=== PATIENT | male | born 1975 | race Caucasian/White ===

== ENCOUNTER → 2019-06-04 09:24 | Outpatient (BNVA) | payer MEDICAID, SELFPAY | PROVIDERS: Family Provider Family Medicine; PCP Family Medicine; Visit Provider Anesthesiology | DX: M54.2 Cervicalgia (principal); M54.5 Low back pain; F17.210 Nicotine dependence, cigarettes, uncomplicated; Z79.891 Long term (current) use of opiate analgesic | CPT/HCPCS: 99214 ==

== ENCOUNTER → 2019-06-11 12:01 | Outpatient (BNVA) | payer MEDICAID, SELFPAY | PROVIDERS: Family Provider Family Medicine; PCP Family Medicine; Visit Provider Family Medicine | DX: M50.00 Cervical disc disorder with myelopathy, unspecified cervical region (principal) | CPT/HCPCS: 36415; 80053 ==

== ENCOUNTER → 2020-12-14 15:40 | Outpatient (BNVA) | payer MEDICAID, SELFPAY | PROVIDERS: Family Provider Family Medicine; PCP Family Medicine; Referring Provider Family Medicine; Visit Provider Orthopaedic Surgery | DX: M43.12 Spondylolisthesis, cervical region (principal); M50.00 Cervical disc disorder with myelopathy, unspecified cervical region | CPT/HCPCS: 72050 ==

== ENCOUNTER → 2020-12-24 09:08 | Outpatient (BNVA) | payer MEDICAID, SELFPAY | PROVIDERS: Family Provider Family Medicine; PCP Family Medicine; Visit Provider Nurse Practitioner Family | DX: R19.7 Diarrhea, unspecified (principal); R50.9 Fever, unspecified; Z20.822 Contact with and (suspected) exposure to COVID-19 | CPT/HCPCS: 87635 ==

== ENCOUNTER 2020-12-31 13:25 | Outpatient (CLI) | payer MEDICAID, SELFPAY ==
--- NOTE | 2020-12-31 13:38 | MR_ITS ---
WS: [id number] MRI CERVICAL SPINE NONCONTRAST TECHNIQUE: Sagittal T1, T2 and STIR imaging. Axial T2, gradient, and fiesta imaging. CLINICAL INFORMATION: M43.12 - Spondylolisthesis, cervical region COMPARISON: MRI FINDINGS: Straightening of the normal cervical lordosis. Mild cervical curve. No high-grade cervical canal sten osis. Cord signal is normal. Disc bulging worse at C3-C4 C4-C5 C5-C6 and C6-C7. Normal prevertebral s oft tissues. C2-C3: Normal. C3-C4: Mild disc osteophyte complex with endplate ridging. Mild central canal stenosis. Moderate left greater than right bony foraminal narrowing. Mild facet arthropathy. C4-C5: Mild disc bulging and osteophytic ridging. Bilobed central shallow protrusion. Moderate to sev ere left and moderate right bony foraminal narrowing. Mild facet arthropathy. Mild central canal sten osis. C5-C6: Right pericentral shallow disc osteophyte protrusion. Slight indentation on cervical cord with mild central canal stenosis. Severe left and moderate right bony foraminal narrowing. Mild facet art hropathy. C6-C7: Right pericentral disc osteophyte protrusion with slight contact of the cervical cord. Mild/mo derate central canal stenosis. Severe left bony foraminal narrowing. Moderate right bony foraminal na rrowing. C7-T1: Mild disc bulge with endplate ridging. Moderate left and mild right bony foraminal narrowing. Mild central canal stenosis Visualized brain stem structures: Normal. Prevertebral soft tissues: Normal. MR/MR cervical spin wo con* [id number] IMPRESSION: Overall no significant interval changes since 2019. 1. Straightening of the normal cervical lordosis. No high-grade central canal narrowing. 2. Mild central canal stenosis C3-C4, C4-C5, C5-C6, and mild to moderate at C6 -C7. 3. Multilevel moderate to severe bony foraminal narrowing worse at left C3-4, left C4-C5, left C5-C6, and left C6-C7
== END 2020-12-31 13:26 | disposition home or self-care (01) ==
PROVIDERS: PCP Family Medicine; Visit Provider Orthopaedic Surgery
DX: M43.12 Spondylolisthesis, cervical region (principal); M48.02 Spinal stenosis, cervical region
CPT/HCPCS: 72141

== ENCOUNTER → 2021-02-03 10:19 | Outpatient (BNVA) | payer MEDICAID, SELFPAY | PROVIDERS: PCP Family Medicine; Referring Provider Orthopaedic Surgery; Visit Provider Anesthesiology Pain Medicine | DX: M50.00 Cervical disc disorder with myelopathy, unspecified cervical region (principal); M54.12 Radiculopathy, cervical region; M47.812 Spondylosis without myelopathy or radiculopathy, cervical region | CPT/HCPCS: 99205 ==

== ENCOUNTER → 2021-02-16 12:43 | Outpatient (BNVA) | payer MEDICAID, SELFPAY | PROVIDERS: PCP Family Medicine; Visit Provider Anesthesiology Pain Medicine | DX: G89.29 Other chronic pain (principal); M54.12 Radiculopathy, cervical region | CPT/HCPCS: 62321; J1100 ==

== ENCOUNTER → 2021-03-14 14:40 | Outpatient (BNVA) | payer MEDICAID, SELFPAY | PROVIDERS: PCP Family Medicine; Visit Provider Anesthesiology Pain Medicine | DX: M54.12 Radiculopathy, cervical region (principal); M54.16 Radiculopathy, lumbar region; F17.210 Nicotine dependence, cigarettes, uncomplicated | CPT/HCPCS: 62321; J1100 ==

== ENCOUNTER → 2021-03-28 10:28 | Outpatient (BNVA) | payer MEDICAID, SELFPAY | PROVIDERS: PCP Family Medicine; Visit Provider Anesthesiology Pain Medicine | DX: G89.29 Other chronic pain (principal); M50.00 Cervical disc disorder with myelopathy, unspecified cervical region; M47.812 Spondylosis without myelopathy or radiculopathy, cervical region; M51.16 Intervertebral disc disorders with radiculopathy, lumbar region; M79.602 Pain in left arm; F17.200 Nicotine dependence, unspecified, uncomplicated | CPT/HCPCS: 99214 ==

== ENCOUNTER → 2021-04-04 13:32 | Outpatient (BNVA) | payer MEDICAID, SELFPAY | PROVIDERS: PCP Family Medicine; Visit Provider Anesthesiology Pain Medicine | DX: G89.29 Other chronic pain (principal); M47.816 Spondylosis without myelopathy or radiculopathy, lumbar region; M54.16 Radiculopathy, lumbar region | CPT/HCPCS: 64493; 64494; 64495; J3490 ==

== ENCOUNTER → 2021-04-07 14:18 | Outpatient (BNVA) | payer MEDICAID, SELFPAY | PROVIDERS: PCP Family Medicine; Visit Provider Anesthesiology Pain Medicine | DX: G89.29 Other chronic pain (principal); M50.00 Cervical disc disorder with myelopathy, unspecified cervical region; M47.812 Spondylosis without myelopathy or radiculopathy, cervical region; M51.16 Intervertebral disc disorders with radiculopathy, lumbar region; M79.602 Pain in left arm; Z79.891 Long term (current) use of opiate analgesic | CPT/HCPCS: 99214 ==

== ENCOUNTER → 2021-05-06 10:00 | Outpatient (BNVA) | payer MEDICAID, SELFPAY | PROVIDERS: PCP Family Medicine; Visit Provider Orthopaedic Surgery | DX: Z20.822 Contact with and (suspected) exposure to COVID-19 (principal) | CPT/HCPCS: 87635 ==

== ENCOUNTER 2021-05-13 05:42 | Day surgery (SDC) | payer MEDICAID, SELFPAY ==
[2021-05-06 08:20] VITALS: BMI 32.9
--- NOTE | 2021-05-06 08:42 | P.ANESASSM_ITS ---
Pre-Anesthetic Assessment Pre-Anesthetic Assessment: Height/Weight: Height 1.65 m Weight 89.811 kg Preop Diagnosis: cervical radiculopathy Proposed Procedure: Operation Date: 05/13/21 07:00 Proposed Procedures p Anterior Cervical Discectomy & Fusion C5/6 C6/7 [id number] 34929(x2) M47.22(Not Applicable) - Nadir Marcos DO Familial anesthetic complications: None Social: Social History: Tobacco and No alcohol Exam: Pre-Anes Outpt Exam: alert, oriented x 3, clear to auscultation bilaterally and regular rate & rhythm Airway: MP: 3 Dentition: Full Anesthetic Plan: ASA status: 1 Anesthesia: General Risk of > 500 ml blo od loss (7ml/kg in children): No PFSH Anesthesia PFSH: Medical History Cervical spondylosis with radiculopathy Intervertebral cervical disc disorder with myelopathy, cervical region Low back pain Smoking addiction Spondylolisthesis of cervical region Surgical History History of arthroscopic surgery of shoulder bilateral S/P arthroscopic surgery of right knee x2 Family History Father Heart disease Social History Smoking and tobacco status: current every day smoker cigarettes Packs smoked per day: 2 Quit status (tobacco): not considering quitting Alcohol intake: current Alcohol intake frequency: few times a month Lives independently: Yes Household members: significant other Marital status: History of recent travel: No Data Anesthesia Cardiac Studies: No Data to Display
[2021-05-13] VITALS (19 sets, daily range): BP systolic 96–128; BP diastolic 67–88; PULSE 65–79; RESP 7–18; TEMP 36.4–36.5; O2SAT 90–98
--- NOTE | 2021-05-13 | XR_ITS ---
WS: [id number] XR cervical spine 3V* [id number] REASON FOR EXAM: spondylolsis FINDINGS: Intraoperative imaging demonstrates anterior plate and screw fixation C5-C7 with interbody fusion dev ices at C5-C6 and C6-C7. Surgical appliances are in proper position and alignment. Normal cervical alignment. No other significant finding. XR/XR cervical spine 3V* [id number] IMPRESSION: Postoperative cervical spine without abnormality as above.
--- NOTE | 2021-05-13 | SCC_ITS ---
Procedure Done: 1. Anterior diskectomy C5/6 2. Anterior discectomy C6/7 3. Insertion of cage C5/6 4. Insertion of Cage C6/7 5. Instrumentation with anterior plate from C5-C7 6. Use of allograft 15.8 seconds of fluoroscopic guidance, for a cumulative dose of 1.78 mGy, was provided to Dr. Marcos by the radiology department. C-arm images of the cervical spine were saved for the patient's permanent record. MICHEALD
[2021-05-13] MEDS: sodium chloride 0.9% 1,000 ML 30 ML IV ×2 (06:30→09:00)
--- NOTE | 2021-05-13 06:51 | W.PM.OPSUD ---
Surgery/Procedure H&P Update DATE OF PROCEDURE: May 13, 2021 DATE H&P PERFORMED: 04/19/21 H&P UPDATE INFORMATION: I have reviewed H&P completed within last 30 days, I have examined patient prior to procedure and No changes to prior documentation PREOP DIAGNOSIS: cervical radiculopathy PLANNED PROCEDURE: Operation Date: 05/13/21 07:00 Proposed Procedures p Anterior Cervical Discectomy & Fusion C5/6 C6/7 52718 [id number] 88549(x2) M47.22(Not Applicable) - Nadir Marcos DO
--- NOTE | 2021-05-13 07:10 | P.ANESUD_ITS ---
Pre-Anesthetic Update Pre-Anesthetic Assessment: Date of Surgery/Procedure: 05/13/21 Preop [place] gnosis: cervical radiculopathy Proposed Procedure: Operation Date: 05/13/21 07:00 Proposed Procedures p Anterior Cervical Discectomy & Fusion C5/6 C6/7 60520 10343 63421(x2) M47.22(Not Applicable) - Nadir H Priti, DO Any changes to Pre-Anesthetic Assessment?: No Last Intake: Intake Last Liquid Date 05/12/21 Last Liquid Time 20:00 Last Solid Date 05/12/21 Last Solid Time 20:00 Vitals: Temperature 97.6 F 05/13/21 06:15 Temperature Source Temporal Artery S can 05/13/21 06:15 Pulse Rate 65 05/13/21 06:15 Pulse Rhythm 05/13/21 06:15 Pulse Strength 3+ Normal 05/13/21 06:15 Respiratory Rate 18 05/13/21 06:15 Blood Pressure 117/88 05/13/21 06:15 Blood Pressure Belen n 97 05/13/21 06:15 Pulse Oximetry 98 05/13/21 06:15 Oxygen Delivery Me thod 05/13/21 06:15 Exam: Pre-Anes Outpt Exam: alert, oriented x 3, clear to auscultation bilaterally and regular rate & rhythm Cardiac Studies: No Data to Display
--- NOTE | 2021-05-13 09:10 | P.OP_ITS ---
Operative Report Date of procedure: May 13, 2021 Pre-op Diagnosis: cervical spondylosis with radiculopathy Post-op diagnosis: same Procedure Done: 1. Anterior diskectomy C5/6 2. Anterior discectomy C6/7 3. Insertion of cage C5/6 4. Insertion of Cage C6/7 5. Instrumentation with anterior plate from C5-C7 6. Use of allograft Surgeon: Nadir Marcos Holistic Nutritionist: Sylvain Mosley Holistic Nutritionist: The surgical services manager, ENMANUEL Avitia was needed for his expertise under the microscope. He was important and necessary throughout the procedure to complete in a safe and timely manner. He assisted with patient positioning prepping and draping tissue retraction suctioning of the operative field protection of the dural sac and tissue closure Estimated blood loss (mL): 20 Condition: stable Disposition: PACU Procedure: The patient was taken to the operating room, where he underwent general endotracheal anesthesia without complications. He was then positioned supine on the operating table, and all areas of impingement were well padded. The arms were carefully padded and tucked at his sides. A roll was placed between the shoulder blades.. An x-ray was done to determine the appropriate level for the skin incision. The entire neck was then sterilely prepped and draped in the usual fashion. Neuromonitoring was attached prior to prepping. A transverse skin incision was made and carried down to the platysma muscle. T his was then split in line with its fibers. Blunt dissection was carried down medial to the carotid sheath and lateral to the trachea and esophagus until the anterior cervical spine was visualized. A needle was placed into a disc and an x-ray was done to determine its location. The longus colli muscles were then elevated bilaterally with the electrocautery unit. Self-retaining retractors were placed deep to the longus colli muscle. Attention was brought to the C5/6 level that was confirmed on x-ray. A caspar pin was placed into the C5 vertebrae and the C6 vertebrae. The disk space was then distracted. The microscope was then brought in. A radical anterior discectomies were performed at C5/6. This included complete removal of the anterior annulus, nucleus, and posterior annulus. The posterior longitudinal ligament was removed as were the posterior osteophytes. Foraminotomies were then accomplished bilaterally. This was done using a high speed jermaine, kerrison rongeurs and curretes Once all of this was accomplished, the curved currette was used to check for any residual compression. The central canal was wide open as were the foramen. A high-speed bur was used to remove the cartilaginous endplates above and below the interspace. Bleeding cancellous bone was exposed. The disc space were measured and appropriate size cage were placed sterilely onto the field. Allograft graft was packed into the cages. The cage was then placed and there was good juxtaposition against the bleeding decorticated surfaces and good distraction of each interspace. Attention was brought to the next interspace. The [place] pins were removed. Bone wax was used to prevent any bleeding from occurring at the pin sites. Attention was brought to the C6/7 level that was confirmed on x-ray. A caspar pin was placed into the C6 vertebrae and the C7 vertebrae. The disk space was then distracted. The microscope was then brought in. A radical anterior discectomies were performed at C6/7. This included complete removal of the anterior annulus, nucleus, and posterior annulus. The posterior longitudinal ligament was removed as were the posterior osteophytes. Foraminotomies were then accomplished bilaterally. This was done using a high speed jermaine, kerrison rongeurs and curretes Once all of this was accomplished, the curved currette was used to check for any residual compression. The central canal was wide open as were the foramen. A high-speed bur was used to remove the cartilaginous endplates above and below the interspace. Bleeding cancellous bone was exposed. The disc space were measured and appropriate size cage were placed sterilely onto the field. Allograft graft was packed into the cages. The cage was then placed and there was good juxtaposition against the bleeding decorticated surfaces and good distraction of each interspace. Attention was brought to the next interspace. The [place] pins were removed. Bone wax was used to prevent any bleeding from occurring at the pin sites. The appropriate size anterior cervical locking plate was chosen and bent into gentle lordosis. One screw was then placed into each of the vertebral bodies at C5, C6 and C7. There was excellent purchase. A final x-ray was done confirming good position of the hardware and Cages. The locking screws were then applied, also with excellent purchase. Following a final copious irrigation, there was good hemostasis and no dural leaks. The carotid pulse was strong. The wounds were then closed in layers using 2-0 Vicryl suture for the platysma muscle, 2-0 Vicryl suture for the subcutaneous tissue, and 4-0 monocryl suture in a subcuticular skin closure. Glue was placed followed by application of a sterile dressing. A soft collar was applied. The patient was then carefully returned to the supine position on his hospital bed where he was reversed and extubated and taken to the recovery room having tolerated the procedure well.
--- NOTE | 2021-05-13 09:19 | SUR.PHASEI ---
patient into pacu with oral airway in place, with simple mask also in place and o2 at 8l with sats at 95%. patient asleep. galena k collar on, dressing dry and intact. no pain per faces.
--- NOTE | 2021-05-13 09:44 | SUR.PHASEI ---
patient still asleep with oral airway in place sats at 95%
--- NOTE | 2021-05-13 09:51 | SUR.PHASEI ---
patient arouses, oral airway removed. simple mask still in place at 8L o2 and sats at 96%.
--- NOTE | 2021-05-13 10:10 | SUR.PHASEI ---
patient transported back to ops, room air sat range 88-91%, placed on 2L o2 when put in ops room 2. patient awake, no complaints of pain while in pacu. upper [place] collar still in place, dressing to anterior neck dry and intact. report to mira shaikh
--- NOTE | 2021-05-13 13:15 | ANE.PACU2 ---
Inpatient post-anesthesia follow up: Airway intact: Yes Vital signs: Temperature 97.5 F Pulse Rate 74 Respiratory Rate 18 Blood Pressure 102/74 Pulse Oximetry 94 Oxygen Delivery Me thod Room Air Oxygen Flow Rate 3 Fraction of Inspir ed Oxygen Hydration adequate: Yes Nausea and vomiting: No Pain level: 3 Mental status: Baseline
== END 2021-05-13 11:37 | disposition home or self-care (01) ==
PROVIDERS: PCP Family Medicine; Visit Provider Orthopaedic Surgery
PROC: 0RB30ZZ Excision of Cervical Vertebral Disc, Open Approach (ICD-10-PCS; CPT 22551; principal; 2021-05-13 07:00)
DX: M47.22 Other spondylosis with radiculopathy, cervical region (principal)
CPT/HCPCS: 20930; 22551; 22552; 22845; 22853 ×2; 72040; 76000; 97760; C1713; C9359; J0330; J0690; J1100; J1170; J1885; J2250; J2405; J2704; J2710; J3010; J3370; J3490; J7030; L0174

== ENCOUNTER → 2021-06-23 08:04 | Outpatient (BNVA) | payer MEDICAID, SELFPAY | PROVIDERS: PCP Family Medicine; Visit Provider Orthopaedic Surgery | DX: M47.22 Other spondylosis with radiculopathy, cervical region (principal); M54.2 Cervicalgia; M54.9 Dorsalgia, unspecified; G89.29 Other chronic pain | CPT/HCPCS: 72040 ==

== ENCOUNTER → 2021-08-04 09:48 | Outpatient (BNVA) | payer MEDICAID, SELFPAY | PROVIDERS: PCP Family Medicine; Visit Provider Physician Assistant | DX: Z48.89 Encounter for other specified surgical aftercare (principal); M47.22 Other spondylosis with radiculopathy, cervical region | CPT/HCPCS: 72040 ==

== ENCOUNTER → 2022-10-18 16:09 | Outpatient (BNVA) | payer OTHER, MEDICAID, SELFPAY | PROVIDERS: PCP Family Medicine; Visit Provider Nurse Practitioner Family | DX: M79.644 Pain in right finger(s) (principal); R10.9 Unspecified abdominal pain | CPT/HCPCS: 73130; 81000 ==

== ENCOUNTER → 2023-10-18 14:06 | Outpatient (BNVA) | payer OTHER, MEDICAID, SELFPAY | PROVIDERS: PCP Family Medicine; Visit Provider Physician Assistant | DX: M25.552 Pain in left hip (principal); M54.16 Radiculopathy, lumbar region | CPT/HCPCS: 73502 ==

== ENCOUNTER → 2023-10-25 15:32 | Outpatient (BNVA) | payer OTHER, MEDICAID, SELFPAY | PROVIDERS: PCP Family Medicine; Visit Provider Orthopaedic Surgery | DX: M54.16 Radiculopathy, lumbar region (principal); M54.2 Cervicalgia; M54.9 Dorsalgia, unspecified; G89.29 Other chronic pain | CPT/HCPCS: 72110 ==

== ENCOUNTER 2023-11-20 07:38 | Outpatient (CLI) | payer OTHER, MEDICAID, SELFPAY ==
--- NOTE | 2023-11-20 08:00 | MR_ITS ---
WS: [id number] MRI LUMBAR SPINE NONCONTRAST TECHNIQUE: Sagittal T1, T2 and STIR imaging. Axial T1 and T2 imaging. CLINICAL INFORMATION: back pain COMPARISON: MRI 2019 FINDINGS: Mild lumbar curve. No acute compression. Central disc protrusion L4-5. L1-L2: Shallow LEFT subarticular protrusion. Narrowing of the LEFT subarticular recess. Spinal canal and foramen are patent. Mild facet arthropathy. This is similar to previous. L2-L3: Mild disc bulging with slight effacement of the ventral thecal sac and slight narrowing LEFT s ubarticular recess. This appears progressed compared to previous with mild central canal stenosis. Mo derate facet arthropathy. Mild LEFT foraminal narrowing. L3-L4: Mild annular bulging. Mild central canal stenosis. Shallow RIGHT subarticular protrusion impin ges the traversing RIGHT L4 nerve root new from previous. Moderate facet arthropathy. Foramen are pat ent. L4-L5: Prominent bilobed central and LEFT subarticular protrusion. Moderate central canal stenosis wi th crowding of the cauda equina nerve rootlets. Impingement on traversing L5 nerve roots bilaterally. Central canal stenosis appears progressed with increased crowding of the thecal sac. Prominent epidu ral fat. Moderate facet arthropathy. Mild bilateral foraminal narrowing. L5-S1: Disc osteophyte complex with endplate ridging. Tiny annular fissure. Moderate to advanced face t arthropathy. Mild LEFT and no significant RIGHT foraminal narrowing. Visualized pelvic bony structures: Normal. Paravertebral soft tissues: Normal. Spine this protrusions in the thoracic spine on the hog killer imaging. Prior cervical fusion. MR/MR lumbar spine wo con* [id number] IMPRESSION: 1. Moderate central canal stenosis with narrowing of the thecal sac and crowdi ng of the cauda equina nerve roots at L4-5 progressed compared to previous. Emre minh central and LEFT subarticular disc protrusion. 2. Mild central canal stenosis L2-L3 and L3-L4 progressed compared to previous . 3. Tiny RIGHT subarticular protrusion L3-4 impinges the traversing RIGHT L4 ne rve root. 4. Moderate facet arthropathy L3-L5 worse at L5-S1.
== END 2023-11-20 07:39 | disposition home or self-care (01) ==
PROVIDERS: PCP Family Medicine; Visit Provider Orthopaedic Surgery
DX: M48.061 Spinal stenosis, lumbar region without neurogenic claudication (principal); M47.896 Other spondylosis, lumbar region; M47.898 Other spondylosis, sacral and sacrococcygeal region; M25.78 Osteophyte, vertebrae
CPT/HCPCS: 72148

== ENCOUNTER → 2023-11-27 15:27 | Outpatient (BNVA) | payer MEDICAID, SELFPAY | PROVIDERS: PCP Family Medicine; Visit Provider Orthopaedic Surgery | DX: M54.16 Radiculopathy, lumbar region (principal); Z09 Encounter for follow-up examination after completed treatment for conditions other than malignant neoplasm | CPT/HCPCS: 36415; 80053; 81003; 85025; 99214 ==

== ENCOUNTER → 2023-12-14 10:35 | Outpatient (BNVA) | payer MEDICAID, SELFPAY | PROVIDERS: PCP Family Medicine; Visit Provider Family Medicine | DX: Z01.818 Encounter for other preprocedural examination (principal) | CPT/HCPCS: 81003 ==

== ENCOUNTER 2023-12-24 08:28 | Day surgery (SDC) | payer OTHER, MEDICAID, SELFPAY ==
[2023-12-24] VITALS (10 sets, daily range): BP systolic 117–149; BP diastolic 86–100; PULSE 60–70; RESP 16–19; TEMP 36.3–36.7; O2SAT 93–98; BMI 31.1
--- NOTE | 2023-12-24 08:54 | ANES.PREANE2 ---
Pre-Anesthetic Assessment Height/Weight: Height 1.73 m Weight 92.986 kg Preop Diagnosis: Lumbar stenosis with neurogenic claudication Operation Date: 12/24/23 10:25 Proposed Procedures p Lumbar Spine Decompression Lumbar Decompression(Not Applicable) - Nadir Marcos DO Familial anesthetic complications: None Was Beta Ketan taken within 24 hours: N/A Was Clonidine taken within 24 hours: N/A Last intake: Intake Last Liquid Date 12/23/23 Last Liquid Time 19:30 Last Solid Date 12/23/23 Last Solid Time 19:30 Social Tobacco and No alcohol Exam alert, oriented x 3, clear to auscultation bilaterally and regular rate & rhythm Airway Mallampati: Class III Dentition: full Pulmonary Sleep Apnea Anesthetic Plan ASA status: 2 Anesthesia: General Risk of > 500 ml blood loss (7ml/kg in children): No Medications/Allergies Home Medications Medication Instructions Recorded Confirmed Last Taken Type omeprazole magnesium 20 mg 20 mg PO DAILY 05/06/21 12/21/23 12/23/23 History tablet,delayed release (Prilosec OTC) celecoxib 200 mg capsule 200 mg PO DAILY 12/14/23 12/21/23 12/18/23 History Allergies Allergy/AdvReac Type Severity Reaction Status Date / Time No Known Allergies Allergy Verified 12/21/23 15:24 [facility] Anesthesia Medical History Spondylosis without myelopathy or radiculopathy, lumbar region Cervical spondylosis with radiculopathy Smoking addiction Spondylolisthesis of cervical region Intervertebral cervical disc disorder with myelopathy, cervical region Low back pain Surgical History History of arthroscopic surgery of shoulder bilateral S/P arthroscopic surgery of right knee x2 Family History Father Heart disease Social History Smoking and tobacco/nicotine status: current every day tobacco/nicotine user (2 packs) cigarettes Packs smoked per day: 2.5 Quit status (tobacco/nicotine): not considering quitting Alcohol intake: current Alcohol intake frequency: few times a month Substance/Drug Use: never Lives independently: Yes Household members: significant other Marital status: Data Anesthesia Cardiac Studies: No Data to Display
--- NOTE | 2023-12-24 09:23 | W.PM.OPSUD ---
Surgery/Procedure H&P Update DATE OF PROCEDURE: December 24, 2023 DATE H&P PERFORMED: 11/27/23 H&P UPDATE INFORMATION: I have reviewed H&P completed within last 30 days, I have examined patient prior to procedure and No changes to prior documentation PREOP DIAGNOSIS: Lumbar stenosis with neurogenic claudication PLANNED PROCEDURE: Operation Date: 12/24/23 10:25 Proposed Procedures p Lumbar Spine Decompression Lumbar Decompression(Not Applicable) - Nadir Marcos DO
[2023-12-24] MEDS: sodium chloride 0.9% 1,000 ML 30 ML IV (09:27)
[2023-12-24] MEDS: ceFAZolin 2,000 MG in sodium chloride 0.9% (plus) 50 ML 100 MG IV (09:55)
[2023-12-24] MEDS: lidocaine-epi 1% 20 mL INJ INJECTION (10:32)
--- NOTE | 2023-12-24 11:23 | P.OP_ITS ---
Operative Report Date of procedure: December 24, 2023 Pre-op diagnosis: Lumbar stenosis with neurogenic claudication and disc herniation Post-op diagnosis: same Procedure done: L4-5 laminectomy with partial facetectomy and discectomy Surgeon: Nadir Marcos DO Estimated blood loss (mL): 15 Procedure: L4-5 laminectomy with partial facetectomy and discectomy Patient is brought to the operative suite. After undergoing anesthesia they are placed in the prone position. All areas of impingement are well padded. Patient is then prepped and draped in the normal sterile fashion. A skin incision is made over the L4-5 level. This is confirmed under c-arm guidance. A series of dilators are passed and the tubular retractor is docked on the L4 lamina. A bovie is used to clear the soft tissue off the lamina and the L 4/5 facet joint. A high speed jermaine is then used to perform the laminectom y and take down the medial aspect of the L 4/5 facet joint. A kerrison rongeure was then used to take down the remaining lamina and smooth the edge of the laminectomy up to the point where the ligamentum flavum attaches. Attention was then brought to the medial aspect of the facet joint. The remaining medial aspect of the superior and inferior aspect of the facet joint were taken down with the kerrison from the pedicle of L4 to L 5. The facet joint had significant hypertrophy. Attention was then brought to the Ligamentum Flavum. The ligament was taken down from the lamina of L4 to L5 and out medially to the remaining facet joint. The ligament was thick. The dura was then exposed. The dura was in good repair. L5 nerve root was retracted with a refill retractor. The disc was identified sharp dissection to the disc was made Radha is used to help release of the disc material micropituitary was used to pull disc fragments out the disc space was irrigated any loose fragments were taken out. The L4 nerve was then traced with a curette out the L4/5 foramen and found to be adequately decompressed. The L5 nerve was traced with a curette around the L5 pedicle. The lateral recess was opened with a kerrison helping to further decompress the L5 nerve. Wound is then irrigated copiously with saline and surgiflo is used to stop any bleeding. The tubular retractor is removed and the wound is closed with vicryl and monocryl suture. Glue is then used to protect the wound. A sterile dressing is then placed. Patient was then placed in the supine position and transferred to the PACU in stable condition.
--- NOTE | 2023-12-24 11:46 | XR_ITS ---
WS: [id number] C-ARM RADIOGRAPHS LUMBAR SPINE; 2 IMAGES HISTORY: or pic, decompression COMPARISON: 10/25/2023 Intraoperative imaging during spinal decompression. There is a marker indicating the LEFT L4-5 disc l evel. XR/XR lumbar spine 1V [id number] IMPRESSION: Intraoperative imaging during spinal decompression.
--- NOTE | 2023-12-24 12:40 | ANE.PACU2 ---
Inpatient post-anesthesia follow up: Airway intact: Yes Vital signs: Temperature 97.9 F Pulse Rate 64 Respiratory Rate 16 Blood Pressure 125/92 Pulse Oximetry 97 Oxygen Delivery Me thod Room Air Oxygen Flow Rate Fraction of Inspir ed Oxygen Hydration adequate: Yes Nausea and vomiting: No Pain level: 1 Mental status: Baseline
--- NOTE | 2023-12-24 13:02 | SUR.PHASEII ---
12:35 ROM,SENSATION AND SENSATION IN ALL 4 EXTREMITIES.
== END 2023-12-24 12:40 | disposition home or self-care (01) ==
PROVIDERS: PCP Family Medicine; Visit Provider Orthopaedic Surgery
PROC: (CPT 63005; principal; 2023-12-24 10:15)
DX: M48.062 Spinal stenosis, lumbar region with neurogenic claudication (principal); M51.26 Other intervertebral disc displacement, lumbar region; G47.30 Sleep apnea, unspecified; F17.210 Nicotine dependence, cigarettes, uncomplicated
CPT/HCPCS: 63030; 72020; 76000; J0131; J0690; J1100; J2405; J2704; J3010; J3490; J7030